=== PATIENT | male | born 1930 | race African-American/Black ===

== ENCOUNTER 2017-02-19 05:54 | Day surgery (SDC) | payer MEDICARE, OTHER ==
[2017-02-12 13:50] LABS: BASOPHILS 0.7 %; BASOPHILS ABSOLUTE 0.03 10/3/uL (0.0-0.16); EOSINOPHILS 5.8 %; EOSINOPHILS ABSOLUTE 0.26 10/3/uL (0.0-0.53); HEMOGLOBIN 9.7 g/dL (13.6-17.8); IMMATURE GRANULOCYTES 0.2 %; IMMATURE GRANULOCYTES ABSOLUTE 0.01 10/3/uL (0.0-0.11); LYMPHOCYTES 27.1 %; LYMPHOCYTES ABSOLUTE 1.21 10/3/uL (0.67-4.30); MEAN CORPUS HGB CONC 32.3 g/dL (32.0-36.0); MEAN CORPUSCULAR HEMOGLOB 29.7 pg (26.0-34.0); MEAN PLATELET VOLUME 9.4 fL (9.2-13.0); MONOCYTES 13.2 %; MONOCYTES ABSOLUTE 0.59 10/3/uL (0.21-1.20); NEUTROPHILS ABSOLUTE 2.36 10/3/uL (2.02-8.40); PLATELET COUNT 180 10/3/uL (150-400); RBC DISTRIBUTION WIDTH 13.7 % (12.0-16.0); RED CELL COUNT 3.27 10/6/uL (4.7-6.1)
[2017-02-12 13:53] LABS: MANUAL DIFF NO %; MEAN CORPUSCULAR VOLUME 91.7 fL (80-100); WHITE BLOOD CELLS 4.5 10/3/uL (4.5-10.5)
[2017-02-12 14:11] LABS: A/G RATIO 1.3 (0.7-1.9); ALBUMIN 3.5 G/DL (3.5-5.0); ALKALINE PHOSPHATASE 102 U/L (45-117); BUN (BLOOD UREA NITROGEN) 15 MG/DL (6-23); CALCIUM, SERUM 9.8 MG/DL (8.5-10.4); CHLORIDE, SERUM 109 MMOL/L (96-112); CO2 (CARBON DIOXIDE) 29 MMOL/L (24-34); CREATININE 0.95 MG/DL (0.70-1.30); GFR AFRICAN AMERICAN 84 ML/MIN (>=60); GFR NON AFRICAN AMERICAN 72 ML/MIN (>=60); GLOBULIN 2.7 G/DL (2.5-4.1); POTASSIUM, SERUM 4.2 MMOL/L (3.5-5.3); SGOT(AST) 17 U/L (5-40); SGPT(ALT) 17 U/L (5-65); TOTAL BILIRUBIN 0.3 MG/DL (0-1.2); TOTAL PROTEIN 6.2 G/DL (6.0-8.5)
[2017-02-12 14:12] LABS: GLUCOSE, SERUM 127 MG/DL (60-99); SODIUM, SERUM 145 MMOL/L (135-148)
--- NOTE | ~2017-02-19 | PREOPHP ---
PreOp History and Physical [address] [place]. [address] NAME: YUN HAWLEY : 32 STATUS : [facility]#: [id number] AGE: 87 ADM/REG DATE : 02/19/17 MR#: [id number] REPORT SERV DATE: 02/20/17 DICTATED BY: LUCIE HOLLIS III DATE: 01/25/17 REPORT STATUS : Draft TRANSCRIBED BY: MODAnil DATE: 01/25/17 HISTORY OF PRESENT ILLNESS: This 87-year-old male comes to the operating room for repair of his symptomatic chronically incarcerated umbilical hernia. The patient has a large umbilical hernia, which has been present for about five years. Recently, it has increased in size and has been associated with some local pain and discomfort. The patient has had no nausea, vomiting, or obstructive symptoms. He has a large chronically incarcerated umbilical hernia and comes now for repair of this hernia. PAST MEDICAL HISTORY: 1. Hypertension. 2. Diabetes mellitus. 3. Osteoarthritis. 4. Gastroesophageal reflux disease. 5. Obesity. MEDICATIONS: Atorvastatin; Dexilant; famotidine; iron; metformin; vitamin D; Zetia; aspirin; Xarelto, which has recently been stopped. ALLERGIES: SULFA. PAST SURGICAL HISTORY: Includes cholecystectomy, cataract surgery, parathyroid removal, bilateral knee replacement, bilateral hip replacement, cardiac ablation, cardiac pacemaker placement, and tonsillectomy. FAMILY HISTORY: Unknown. SOCIAL HISTORY: The patient has a previous history of tobacco abuse. Has a history of alcohol use. REVIEW OF SYSTEMS: The patient has a history of some weight loss. He has a history of swelling in his hands and feet. He has a history of back pain. His 14-point review of systems is otherwise unremarkable. PHYSICAL EXAMINATION: GENERAL: This is a large obese male, in no acute distress. He is alert and oriented x3. VITAL SIGNS: Blood pressure 136/67, pulse 66, temperature 98.1. HEENT: Unremarkable. Cranial nerves II through XII are normal. LUNGS: Clear. CARDIAC: Normal. ABDOMEN: Soft and nontender. The patient has a large chronically incarcerated umbilical hernia with a large amount of redundant adipose tissue and skin over the abdominal wall. The hernia is not reducible. EXTREMITIES: Normal. ASSESSMENT: PreOp History and Physical [address] [place]. [address] NAME: YUN HAWLEY : 32 STATUS : [facility]#: [id number] AGE: 87 ADM/REG DATE : 02/19/17 MR#: [id number] REPORT SERV DATE: 02/20/17 DICTATED BY: LUCIE HOLLIS III DATE: 01/25/17 REPORT STATUS : Draft TRANSCRIBED BY: MODL DATE: 01/25/17 1. 87-year-old male with extremely large, chronically incarcerated umbilical or incisional hernia. 2. History of cardiac arrhythmia. 3. History of cardiac ablation. 4. History of pacemaker placement. 5. History of severe degenerative joint disease. 6. Obesity. 7. History of tobacco abuse. 8. Diabetes mellitus. 9. Gastroesophageal reflux disease. 10.Hypertension. PLAN: The patient comes to the operating room now for repair of this hernia. This procedure, the risks, benefits, and alternatives, including, but not limited to the risk for bleeding, infection, enterotomy, injury to any abdominal structure, postop small bowel obstruction, ileus, seroma formation, hematoma formation, recurrence of the hernia, possible need for use of the mesh, risk of infection of the mesh or enterocutaneous fistula requiring removal of the mesh, and unforeseen complications including deep venous thrombosis, pulmonary embolus, myocardial infarction, stroke, pneumonia, and , have been explained to the patient prior to surgery. The expected length of recovery has been explained. The patient's questions have been answered. He understands the risks and agrees to the surgery as planned. RHJ/ROBERTOL Lucie Hollis III, M.D. / [id number] CC: Jeremiah Bower M.D.
--- NOTE | ~2017-02-19 | OP ---
Record Of Operation [facility] [address] [place]. [address] NAME: YUN HAWLEY : 32 STATUS : [facility]#: [id number] AGE: 87 ADM/REG DATE : 02/19/17 MR#: [id number] REPORT SERV DATE: 02/19/17 DICTATED BY: LUCIE HOLLIS III DATE: 02/19/17 REPORT STATUS : Draft TRANSCRIBED BY: MODL DATE: 02/19/17 DATE OF PROCEDURE: 02/19/2017 PREOPERATIVE DIAGNOSIS: Symptomatic incarcerated umbilical hernia. POSTOPERATIVE DIAGNOSIS: Symptomatic incarcerated umbilical hernia. PROCEDURE: Open repair of incarcerated umbilical hernia. SURGEON: Lucie Hollis M.D. ANESTHESIA: General with intubation. COMPLICATIONS: None. ESTIMATED BLOOD LOSS: Less than 5 mL. SPECIMENS: None. DRAINS: None. LAP AND SPONGE COUNT: Correct x3. BRIEF HISTORY: This 87-year-old male presented with a symptomatic chronically incarcerated umbilical hernia. It was felt that elective repair of this hernia was indicated. This procedure, the risks, benefits, and alternatives, including but not limited to the risk for bleeding, infection, enterotomy, injury to any abdominal structure, postop small bowel obstruction, ileus, incisional hernia recurrence, seroma formation, hematoma formation, and unforeseen complications including deep venous thrombosis, pulmonary embolus, myocardial infarction, stroke, pneumonia, and were fully explained to the patient and his family prior to the surgery. The fact that this was a major operation with risk for major morbidity and mortality was explained as well as the expected length of recovery. The patient had questions, which were answered. He fully understood the risks and agreed to the surgery as planned. DESCRIPTION OF PROCEDURE: After being properly identified and after discussing the risks and benefits of surgery with him again in the preoperative area, and after identifying the hernia with him in the preoperative area, the patient was taken to the operating room and placed in supine position on the operating room table. General anesthesia was administered. He was intubated without difficulty. The abdomen was prepped and draped sterilely in the usual fashion. After an appropriate "time-out" per JCAHO standards, a small curvilinear incision was made along the inferior border of the navel. The incision was continued through the subcutaneous tissue. Hemostasis was controlled with cautery. The navel was elevated superiorly. The fascial defect was identified. There was some omentum within this which was carefully reduced into the abdominal cavity. The skin and subcutaneous tissue around the defect anteriorly was fully mobilized. The underside of the fascia was palpated Record Of Operation [facility] [address] [place]. [address] NAME: YUN HAWLEY : 32 STATUS : [facility]#: [id number] AGE: 87 ADM/REG DATE : 02/19/17 MR#: [id number] REPORT SERV DATE: 02/19/17 DICTATED BY: LUCIE HOLLIS III DATE: 02/19/17 REPORT STATUS : Draft TRANSCRIBED BY: ELIANA DATE: 02/19/17 and inspected to be certain that there was no bowel beneath this. Hemostasis was assured. The fascial edges came together nicely with no tension. The fascial edges were reapproximated with interrupted #1 Prolene sutures. The fascia came together nicely with no tension. The fascia was very loose and attenuated. It was felt that mesh repair was not required. The wound was irrigated copiously with saline. Hemostasis was assured. The subcutaneous tissue was closed with a running 3-0 chromic suture. The skin was closed with a running subcuticular 4-0 Monocryl stitch. Incision was injected with 0.5% Marcaine. Dressings were applied. Anesthesia was reversed, and the patient was taken to the recovery room in stable condition. He tolerated the procedure well. His family was informed the results of the surgery. The patient will be discharged when stable and comfortable and able to void and ambulate. His family was advised to keep his wound clean and dry for 48 hours, that he should not drive for three to four days after surgery or while using narcotics, and that he should resume his usual medications. They were advised that he should not perform any heavy lifting for four to five weeks. He was asked to return in two weeks for followup or sooner if any nausea, vomiting, fever, chills, wound drainage, or other problems prior to that time. He was given a prescription for Percocet 7.5 one t.i.d., #12, as needed for pain, which he was advised not to use while driving. SANDIE/ELIANA Lucie Hollis III, M.D. / [id number] CC: Otilio Small III, M.D.
[~2017-02-19 05:54] MED LIST: ACET500CAP PO; ACTOS45 PO; ALEVE220 MG PO; AMOXIL500C PO; ASAB PO; ATRONASAL3 NAS; AUG500 PO; BENICAR HCT1 TA1 PO; BENICAR HCT1 TA2 PO; BENICAR HCT1 TAB PO; BYETTA SC; C1 PO; C5 PO; CALTRA600D PO; COUMADIN3 MG PO; CYANO1000T PO; FERROUS SULF325 M1 PO; FOSAMAX35 MG PO; GLUCOPHAGE1000 MG PO; HYPOTEARS OP; IMOD PO; JANUVIA100 MG PO; KAPIDEX60 MG PO; LEVSINTAB PO; LIPITOR40 PO; MULTIPLE VIT PO; NATURAL TEARS OPH; PCET PO; PEP20 PO; PROMEGA PO; PROTONIX PO; ROLAIDS; TUMSROLL PO; VITAMIN D31000 UNIT PO; XARELTO20 MG PO; ZETIA PO
[2017-02-25] MEDS ORDERED: GLUCOPHAGE1000 MG PO (14:46)
[2017-02-25] MEDS ORDERED: ZETIA PO (14:46)
[2017-02-25] MEDS ORDERED: PEP20 PO (14:47)
[2017-02-25] MEDS ORDERED: LIPITOR40 PO (14:47)
[2017-02-25] MEDS ORDERED: FERROUS SULF325 M1 PO (14:48)
[2017-02-25] MEDS ORDERED: KAPIDEX60 MG PO (14:48)
[2017-02-25] MEDS ORDERED: VITAMIN D1000 UNI1 PO (14:49)
[2017-02-25] MEDS ORDERED: HYPOTEARS OPH (14:50)
[2017-02-25] MEDS ORDERED: TUMSROLL PO (14:50)
[2017-02-25] MEDS ORDERED: IMOD PO (14:51)
[2017-02-25] MEDS ORDERED: ACET500CAP PO (14:52)
[2017-02-27] MEDS ORDERED: DSS PO (11:59)
[2017-02-27] MEDS ORDERED: FLOMAX4 PO (11:59)
[2017-02-27] MEDS ORDERED: ASAB PO (11:59)
[2017-02-27] MEDS ORDERED: LEVAQUIN750 MG PO (12:00)
[2017-02-27] MEDS ORDERED: MIRALAX POWDER1 PKT PO (12:00)
== END 2017-02-19 13:15 | disposition home or self-care (01) ==
LOC: SDC 05:54
PROVIDERS: Surgery
PROC: 0WQF0ZZ Repair Abdominal Wall, Open Approach (ICD-10-PCS; principal; 2017-02-19 08:00)
DX: K42.0 Umbilical hernia with obstruction, without gangrene (principal); I10 Essential (primary) hypertension; E11.9 Type 2 diabetes mellitus without complications; M19.90 Unspecified osteoarthritis, unspecified site; K21.9 Gastro-esophageal reflux disease without esophagitis; E66.9 Obesity, unspecified; G47.33 Obstructive sleep apnea (adult) (pediatric); Z68.28 Body mass index [BMI] 28.0-28.9, adult; Z88.2 Allergy status to sulfonamides; Z87.891 Personal history of nicotine dependence; Z90.49 Acquired absence of other specified parts of digestive tract; Z96.653 Presence of artificial knee joint, bilateral; Z96.643 Presence of artificial hip joint, bilateral; Z90.89 Acquired absence of other organs; Z98.890 Other specified postprocedural states
CPT/HCPCS: 80053; 82962; 85025; 87641; 93005; A9270-GY; J0690; J1170; J2250; J2405; J2710; J3010

== ENCOUNTER 2017-02-20 16:23 | Emergency (ER) | payer MEDICARE, OTHER ==
[2017-02-20 14:29] LABS: BASOPHILS 0.2 %; BASOPHILS ABSOLUTE 0.01 10/3/uL (0.0-0.16); EOSINOPHILS ABSOLUTE 0.11 10/3/uL (0.0-0.53); ER CBC TAT 0 Hrs 05 Mins; HEMATOCRIT 33.1 % (40.0-51.0); HEMOGLOBIN 10.6 g/dL (13.6-17.8); IMMATURE GRANULOCYTES 0.2 %; IMMATURE GRANULOCYTES ABSOLUTE 0.01 10/3/uL (0.0-0.11); LYMPHOCYTES 16.7 %; LYMPHOCYTES ABSOLUTE 0.94 10/3/uL (0.67-4.30); MANUAL DIFF NO %; MEAN CORPUSCULAR HEMOGLOB 28.8 pg (26.0-34.0); MEAN CORPUSCULAR VOLUME 89.9 fL (80-100); MEAN PLATELET VOLUME 9.5 fL (9.2-13.0); NEUTROPHILS 64.9 %; NEUTROPHILS ABSOLUTE 3.66 10/3/uL (2.02-8.40); PLATELET COUNT 189 10/3/uL (150-400); RBC DISTRIBUTION WIDTH 13.9 % (12.0-16.0); RED CELL COUNT 3.68 10/6/uL (4.7-6.1); WHITE BLOOD CELLS 5.6 10/3/uL (4.5-10.5)
[2017-02-20 14:42] LABS: ASCORBIC ACID (UR NOT ORDER) NEG (NEG); BILIRUBIN, URINE NEGATIVE (NEG); ER URINALYSIS TAT 0 Hrs 18 Mins; KETONE, URINE NEGATIVE (NEG); LEUKOCYTE ESTERASE(NOT OR TRACE (NEG); NITRITE (URINE) NEG (NEG); WBC (NOT ORDERED) (RFLEX) 8 (0-5)
[2017-02-20 14:44] LABS: A/G RATIO 1.1 (0.7-1.9); ALBUMIN 3.6 G/DL (3.5-5.0); ALKALINE PHOSPHATASE 99 U/L (45-117); BUN (BLOOD UREA NITROGEN) 14 MG/DL (6-23); CALCIUM, SERUM 9.6 MG/DL (8.5-10.4); CHLORIDE, SERUM 103 MMOL/L (96-112); CO2 (CARBON DIOXIDE) 30 MMOL/L (24-34); CREATININE 1.01 MG/DL (0.70-1.30); GFR AFRICAN AMERICAN 78 ML/MIN (>=60); GFR NON AFRICAN AMERICAN 67 ML/MIN (>=60); GLUCOSE, SERUM 141 MG/DL (60-99); SGOT(AST) 21 U/L (5-40); SGPT(ALT) 18 U/L (5-65); TOTAL BILIRUBIN 0.4 MG/DL (0-1.2); TOTAL PROTEIN 6.9 G/DL (6.0-8.5)
[2017-02-20 14:46] LABS: GLOBULIN 3.3 G/DL (2.5-4.1); SODIUM, SERUM 134 MMOL/L (135-148)
[2017-02-25] MEDS ORDERED: GLUCOPHAGE1000 MG PO (14:46)
[2017-02-25] MEDS ORDERED: ZETIA PO (14:46)
[2017-02-25] MEDS ORDERED: PEP20 PO (14:47)
[2017-02-25] MEDS ORDERED: LIPITOR40 PO (14:47)
[2017-02-25] MEDS ORDERED: FERROUS SULF325 M1 PO (14:48)
[2017-02-25] MEDS ORDERED: KAPIDEX60 MG PO (14:48)
[2017-02-25] MEDS ORDERED: VITAMIN D1000 UNI1 PO (14:49)
[2017-02-25] MEDS ORDERED: HYPOTEARS OPH (14:50)
[2017-02-25] MEDS ORDERED: TUMSROLL PO (14:50)
[2017-02-25] MEDS ORDERED: IMOD PO (14:51)
[2017-02-25] MEDS ORDERED: ACET500CAP PO (14:52)
[2017-02-27] MEDS ORDERED: FLOMAX4 PO (11:59)
[2017-02-27] MEDS ORDERED: DSS PO (11:59)
[2017-02-27] MEDS ORDERED: ASAB PO (11:59)
[2017-02-27] MEDS ORDERED: LEVAQUIN750 MG PO (12:00)
[2017-02-27] MEDS ORDERED: MIRALAX POWDER1 PKT PO (12:00)
== END 2017-02-20 18:08 | disposition home or self-care (01) ==
LOC: ER 16:23
PROVIDERS: Emergency Medicine
PROC: 0T2BX0Z Change Drainage Device in Bladder, External Approach (ICD-10-PCS; principal; 2017-02-20)
DX: R33.9 Retention of urine, unspecified (principal); I10 Essential (primary) hypertension; E11.9 Type 2 diabetes mellitus without complications; E78.5 Hyperlipidemia, unspecified; Z88.2 Allergy status to sulfonamides; Z79.899 Other long term (current) drug therapy; Z79.82 Long term (current) use of aspirin; Z79.84 Long term (current) use of oral hypoglycemic drugs
CPT/HCPCS: 80053; 81001; 83690; 85025; 93005; 99284